=== PATIENT | female | born 1960 | race Caucasian/White ===

== ENCOUNTER 2021-01-21 10:58 | Emergency (ER) | payer MEDICARE, MEDICAID ==
[~2021-01-21] VITALS: Ht 162.6 cm; Wt 65.5 kg
[2021-01-21 11:45] VITALS: BP 127/41
[2021-01-21] MEDS ORDERED: aspirin 81mg tab.chew PO ONE (11:50)
== END 2021-01-21 12:05 | disposition left against medical advice (07) ==
LOC: ER 11:00
DX: R07.89 Other chest pain (principal); R14.1 Gas pain
CPT/HCPCS: 93005; 99283

== ENCOUNTER 2024-11-16 18:12 | Inpatient (IN) | payer MEDICARE, MEDICAID ==
[~2024-11-16] VITALS: Ht 162.6 cm; Wt 81.5 kg
[2024-11-16 19:03] LABS: BASOPHILS % (AUTO) 0.3 % (0-1); EOSINOPHILS % (AUTO) 0 % (0-6); HEMATOCRIT 36.7 % (35.0-45.0); HEMOGLOBIN 12.5 g/dl (12.0-16.0); LYMPHOCYTES # (AUTO) 0.8 X10'3 (1.1-4.8); LYMPHOCYTES % (AUTO) 16.4 % (21-51); MEAN CORPUSCULAR HEMOGLOBIN 32.3 PG (27.0-31.0); MEAN CORPUSCULAR HGB CONC 34.2 g/dL (33.0-36.5); MEAN CORPUSCULAR VOLUME 94.4 FL (78-98); MEAN PLATELET VOLUME 8.5 FL (7.4-10.4); MONOCYTES # (AUTO) 0.8 X10'3 (0-0.9); MONOCYTES % (AUTO) 15.5 % (2-12); NEUTROPHILS # (AUTO) 3.5 X10'3 (1.8-7.7); NEUTROPHILS % (AUTO) 67.8 % (42-75); PLATELET COUNT 157 X10'3 (140-440); RED BLOOD COUNT 3.89 X10'6 (4.20-5.60); RED CELL DISTRIBUTION WIDTH 15.1 % (11.5-14.5); WHITE BLOOD COUNT 5.1 X10'3 (4.5-11.0)
[2024-11-16 19:17] LABS: ANION GAP 7 (8-16); BLOOD UREA NITROGEN 35 MG/DL (7-18); BUN/CREATININE RATIO 36.8 (10.0-20.0); CALCIUM 8.4 MG/DL (8.5-10.1); CHLORIDE 102 MMOL/L (99-107); CREATININE 0.95 MG/DL (0.40-0.90); GLUCOSE 205 MG/DL (70-104); POTASSIUM 3.5 MMOL/L (3.5-5.1); SODIUM 139 MMOL/L (135-145); TOTAL CARBON DIOXIDE 30.1 MMOL/L (24-32); eCRCL 53 ML/MIN; eGFR 60 ML/MIN
[2024-11-16] MEDS ORDERED: HALO5TAB (19:40)
[2024-11-16] MEDS ORDERED: DOCU-391 (19:40)
[2024-11-16] MEDS ORDERED: DONE10TA44 (19:40)
[2024-11-16] MEDS ORDERED: DIVA500T9 (19:40)
[2024-11-16] MEDS ORDERED: CHOL20002 PO (19:40)
[2024-11-16] MEDS ORDERED: CLOZ50TA9 (19:40)
[2024-11-16] MEDS ORDERED: SERT-434 (19:40)
[2024-11-16] MEDS ORDERED: DONE-46 (19:40)
[2024-11-16] MEDS ORDERED: OXYB5TAB21 (19:40)
[2024-11-16] MEDS ORDERED: FURO20TA4 (19:40)
[2024-11-16] MEDS ORDERED: LEVO50TA8 (19:40)
[2024-11-16] MEDS ORDERED: GABA300C (19:40)
[2024-11-16] MEDS ORDERED: BENZ0.5T3 (19:40)
[2024-11-16] MEDS ORDERED: DICL100G59 (19:40)
[2024-11-16 19:42] LABS: TOTAL CELLS COUNTED 100
[2024-11-16 19:58] LABS: BILIRUBIN,URINE NEGATIVE (Neg); CLARITY,URINE CLEAR (Clear); COLOR,URINE YELLOW (Yellow); GLUCOSE, URINE NEGATIVE (Neg); KETONES,URINE NEGATIVE (Neg); LEUKOCYTE ESTERASE ,URINE NEGATIVE (Neg); NITRITES, URINE NEGATIVE (Neg); OCCULT BLOOD,URINE NEGATIVE (Neg); PROTEIN,URINE NEGATIVE (Neg); UROBILINOGEN,URINE 0.2 E.U/dL (0.2-1.0)
[2024-11-16] MEDS: aspirin 81mg tab.chew PO ONE (20:14)
[2024-11-16 20:21] LABS: UA COLLECTION TYPE CLN CATCH MIDSTREAM
[2024-11-16] MEDS: enoxaparin 60mg/0.6ml syringe SUBCUT ONE (20:55)
[2024-11-16 21:00] LABS: C-REACTIVE PROTEIN 3.49 MG/DL (0.0-0.5); PRO BRAIN NATRIURETIC PEPTIDE 681 PG/ML (0-125)
[2024-11-16 21:07] LABS: APTT 31 SECONDS (22-32); INR 1.1 INR; PROTHROMBIN TIME 11.1 SECONDS (9.0-12.0)
[2024-11-16] MEDS ORDERED: potassium Cl 20 mEq SR tablet PO PRN ×2 (21:45)
[2024-11-16] MEDS ORDERED: HYDROcodone/acetaminophen 5mg/325mg tablet PO PRN (21:45)
[2024-11-16] MEDS ORDERED: morphine 2 MG/ML inj. syringe IV PRN (21:45)
[2024-11-16] MEDS ORDERED: PERFLUTREN PROTEIN-A MICROSPHR (Optison) 0.22 MG/ML 3ML VIAL IV PRN (21:45)
[2024-11-16] MEDS ORDERED: ondansetron/PF 4mg/2ml inj IV PRN (21:45)
[2024-11-16] MEDS ORDERED: mag hydrox/Alum hydrox/simeth 30ml oral suspension PO PRN (21:45)
[2024-11-16] MEDS ORDERED: magnesium sulf-water 2g/50mL 50 ML IV PRN (21:45)
[2024-11-16] MEDS ORDERED: magnesium Cl slow-release 64mg tablet PO PRN (21:45)
[2024-11-16] MEDS ORDERED: magnesium sulf-water 4G/100mL 100 ML IV PRN (21:45)
[2024-11-16] MEDS ORDERED: potassium Cl 40MEQ/1/2NS 520ml 520 ML IV PRN (21:45)
[2024-11-16] MEDS: enoxaparin 100mg/ml syringe SUBCUT ONE (22:00)
[2024-11-17] VITALS (8 sets, daily range): BP systolic 103–117; BP diastolic 45–86; PULSE 64–76; RESP 16–18; TEMP 97.6–101.8; O2SAT 64–96
[2024-11-17] MEDS: normal saline 1000ml 1,000 ML IV ONE (04:30)
[2024-11-17 07:14] LABS: BASOPHILS % (AUTO) 0.6 % (0-1); EOSINOPHILS % (AUTO) 0 % (0-6); HEMATOCRIT 35.5 % (35.0-45.0); LYMPHOCYTES # (AUTO) 1.2 X10'3 (1.1-4.8); LYMPHOCYTES % (AUTO) 26.6 % (21-51); MEAN CORPUSCULAR HEMOGLOBIN 31.8 PG (27.0-31.0); MEAN CORPUSCULAR HGB CONC 33.7 g/dL (33.0-36.5); MEAN CORPUSCULAR VOLUME 94.2 FL (78-98); MEAN PLATELET VOLUME 8.8 FL (7.4-10.4); MONOCYTES # (AUTO) 0.6 X10'3 (0-0.9); MONOCYTES % (AUTO) 12.9 % (2-12); NEUTROPHILS # (AUTO) 2.8 X10'3 (1.8-7.7); NEUTROPHILS % (AUTO) 59.9 % (42-75); PLATELET COUNT 146 X10'3 (140-440); RED BLOOD COUNT 3.77 X10'6 (4.20-5.60); RED CELL DISTRIBUTION WIDTH 14.8 % (11.5-14.5); WHITE BLOOD COUNT 4.7 X10'3 (4.5-11.0)
[2024-11-17 07:22] LABS: ALANINE AMINOTRANSFERASE 116 U/L (12-78); ALBUMIN 2.5 G/DL (3.4-5.0); ALBUMIN/GLOBULIN RATIO 0.7 (1.1-1.5); ALKALINE PHOSPHATASE 50 IU/L (46-116); ANION GAP 3 (8-16); ASPARTATE AMINO TRANSFERASE 414 U/L (10-37); BILIRUBIN,TOTAL 0.3 MG/DL (0.1-1.0); BLOOD UREA NITROGEN 26 MG/DL (7-18); BUN/CREATININE RATIO 44.1 (10.0-20.0); CALCIUM 7.9 MG/DL (8.5-10.1); CHLORIDE 104 MMOL/L (99-107); CHOL/HDL RATIO 1.7 (0.00-4.99); CHOLESTEROL 103 MG/DL (0-200); CREATININE 0.59 MG/DL (0.40-0.90); GLUCOSE 108 MG/DL (70-104); HDL CHOLESTEROL 59 MG/DL (35-60); MAGNESIUM 1.9 MG/DL (1.5-2.4); POTASSIUM 3.7 MMOL/L (3.5-5.1); SODIUM 139 MMOL/L (135-145); THYROID STIMULATING HORMONE 3.07 ulU/ml (0.34-4.50); TOTAL PROTEIN 5.9 G/DL (6.4-8.2); TRIGLYCERIDES 121 MG/DL (20-135); eCRCL 85 ML/MIN; eGFR > 90 ML/MIN
[2024-11-17 07:46] LABS: LDL CHOLESTEROL 36 MG/DL (50-100)
[2024-11-17] MEDS: K and/or MAG REPLACEMENT MC SCH (08:00)
[2024-11-17] MEDS: docusate sod 100mg capsule PO SCH (08:19)
[2024-11-17] MEDS: oseltamivir phos 75mg capsule PO SCH (08:19)
[2024-11-17] MEDS: acetaminophen 325mg tablet PO PRN (08:19)
[2024-11-17] MEDS: heparin, porcine 5000 units/ml vial SQ SCH (08:20)
[2024-11-17] MEDS ORDERED: HALO5TAB PO (09:12)
[2024-11-17] MEDS: FLU VACC TS2024-25(6MOS UP)/PF 45 MCG/0.5 ML SYRINGE IMVAC ONE (10:42)
[2024-11-17] MEDS: ringers solution, lacted 1,000 ML IV ONE (12:28)
[2024-11-17 12:37] LABS: D-DIMER 0.77 MG/L FEU (0-0.50)
[2024-11-17 12:51] LABS: PHOSPHORUS 2.5 MG/DL (2.3-4.5)
[2024-11-17 13:01] LABS: ABG HCO3 28.2 mmol/L (21.0-28.0); ABG OXYGEN SATURATION 89.7 % (94.0-98.0); ABG PCO2 (T) 43.4 mmHg (32.0-45.0); ABG PH (T) 7.436 (7.350-7.450); ABG PO2 (T) 63.2 mmHg (83.0-108.0); ALLEN'S TEST POSITIVE; FCOHb 0.5 % (0.5-1.5); FHHb 10.2 % (0.0-5.0); FLOW 3 L/min; FMetHb 0.3 % (0.0-1.5); MODE NASAL CANNULA; PATIENT TEMPERATURE 38.6
[2024-11-17] MEDS: azithromycin/NS 500mg/250ml 250 ML IV ONE (13:57)
[2024-11-17] MEDS: magnesium hydroxide 30ml (MOM) UD suspension PO PRN (14:06)
[2024-11-17] MEDS: CefTRIAXone/D5W-Rocephin 1gm 50 ML IV SCH (16:17)
[2024-11-17] MEDS ORDERED: vancomycin/NS 1 GM ADD-VANTAGE 250 ML IV SCH (17:00)
[2024-11-17] MEDS: normal saline 1000ml 1,000 ML IV SCH (17:02)
[2024-11-17] MEDS ORDERED: FURO20TA4 PO (17:22)
[2024-11-17] MEDS ORDERED: DIVA500T9 PO (17:22)
[2024-11-17] MEDS ORDERED: GABA300C PO (17:22)
[2024-11-17] MEDS ORDERED: CLOZ50TA9 PO (17:22)
[2024-11-17] MEDS ORDERED: SERT-434 PO (17:22)
[2024-11-17] MEDS ORDERED: OXYB5TAB21 PO (17:22)
[2024-11-17] MEDS: VANCOMYCIN 1.75GM/WATER FOR INJ (PEG) 350 ML IVPB IV ONE (17:50)
[2024-11-17] MEDS: divalproex sod 250mg ER (24-hour) tablet PO SCH (20:54)
[2024-11-17] MEDS: haloperidol 5mg tablet PO SCH (20:55)
[2024-11-18] VITALS (7 sets, daily range): BP systolic 109–125; BP diastolic 41–57; PULSE 65–90; RESP 12–24; TEMP 98–100.1; O2SAT 92–98
[2024-11-18] MEDS: VANCOMYCIN/WATER FOR INJ (PEG) 1.25GM/250 ML IVPB IV SCH (05:21)
[2024-11-18 06:18] LABS: BASOPHILS % (AUTO) 0.8 % (0-1); EOSINOPHILS % (AUTO) 0.1 % (0-6); HEMATOCRIT 33.6 % (35.0-45.0); HEMOGLOBIN 11.4 g/dl (12.0-16.0); LYMPHOCYTES # (AUTO) 1.5 X10'3 (1.1-4.8); LYMPHOCYTES % (AUTO) 37.1 % (21-51); MEAN CORPUSCULAR HEMOGLOBIN 31.8 PG (27.0-31.0); MEAN CORPUSCULAR HGB CONC 33.8 g/dL (33.0-36.5); MEAN PLATELET VOLUME 8.5 FL (7.4-10.4); MONOCYTES # (AUTO) 0.4 X10'3 (0-0.9); MONOCYTES % (AUTO) 9.8 % (2-12); NEUTROPHILS % (AUTO) 52.2 % (42-75); PLATELET COUNT 131 X10'3 (140-440); RED BLOOD COUNT 3.57 X10'6 (4.20-5.60); RED CELL DISTRIBUTION WIDTH 14.8 % (11.5-14.5); WHITE BLOOD COUNT 3.9 X10'3 (4.5-11.0)
[2024-11-18 06:37] LABS: ALANINE AMINOTRANSFERASE 104 U/L (12-78); ALBUMIN 2.1 G/DL (3.4-5.0); ALBUMIN/GLOBULIN RATIO 0.7 (1.1-1.5); ALKALINE PHOSPHATASE 45 IU/L (46-116); ANION GAP 3 (8-16); ASPARTATE AMINO TRANSFERASE 370 U/L (10-37); BILIRUBIN,TOTAL 0.2 MG/DL (0.1-1.0); BLOOD UREA NITROGEN 13 MG/DL (7-18); BUN/CREATININE RATIO 26.5 (10.0-20.0); CALCIUM 7.5 MG/DL (8.5-10.1); CHLORIDE 104 MMOL/L (99-107); CREATININE 0.49 MG/DL (0.40-0.90); GLUCOSE 103 MG/DL (70-104); MAGNESIUM 1.8 MG/DL (1.5-2.4); POTASSIUM 4.1 MMOL/L (3.5-5.1); SODIUM 138 MMOL/L (135-145); TOTAL CARBON DIOXIDE 31.4 MMOL/L (24-32); TOTAL PROTEIN 5.3 G/DL (6.4-8.2); eCRCL 103 ML/MIN; eGFR > 90 ML/MIN
[2024-11-18] MEDS: gabapentin 300mg capsule PO SCH (09:52)
[2024-11-18] MEDS: oxybutynin 5mg tablet PO SCH (09:52)
[2024-11-18] MEDS: sertraline 50mg tablet PO SCH (09:52)
[2024-11-18] MEDS: aspirin 81mg tab.chew PO SCH (09:52)
[2024-11-18] MEDS: clozapine 25mg tablet PO SCH (09:55)
[2024-11-19 02:00] VITALS: BP 103/42; PULSE 71; RESP 15; TEMP 98; O2SAT 95
[2024-11-19] MEDS: VANCOMYCIN LEVEL IV ONE (05:02)
[2024-11-19 05:12] LABS: BASOPHILS % (AUTO) 0.3 % (0-1); EOSINOPHILS % (AUTO) 0 % (0-6); HEMATOCRIT 33.1 % (35.0-45.0); HEMOGLOBIN 11.2 g/dl (12.0-16.0); LYMPHOCYTES # (AUTO) 1.7 X10'3 (1.1-4.8); LYMPHOCYTES % (AUTO) 21.9 % (21-51); MEAN CORPUSCULAR HEMOGLOBIN 31.8 PG (27.0-31.0); MEAN CORPUSCULAR HGB CONC 33.9 g/dL (33.0-36.5); MEAN CORPUSCULAR VOLUME 93.7 FL (78-98); MEAN PLATELET VOLUME 8.7 FL (7.4-10.4); MONOCYTES # (AUTO) 0.7 X10'3 (0-0.9); MONOCYTES % (AUTO) 9.8 % (2-12); NEUTROPHILS # (AUTO) 5.2 X10'3 (1.8-7.7); PLATELET COUNT 139 X10'3 (140-440); RED BLOOD COUNT 3.53 X10'6 (4.20-5.60); RED CELL DISTRIBUTION WIDTH 14.7 % (11.5-14.5); WHITE BLOOD COUNT 7.6 X10'3 (4.5-11.0)
[2024-11-19 05:32] LABS: ALANINE AMINOTRANSFERASE 91 U/L (12-78); ALBUMIN 1.9 G/DL (3.4-5.0); ALBUMIN/GLOBULIN RATIO 0.6 (1.1-1.5); ALKALINE PHOSPHATASE 42 IU/L (46-116); ANION GAP 2 (8-16); ASPARTATE AMINO TRANSFERASE 250 U/L (10-37); BILIRUBIN,TOTAL 0.2 MG/DL (0.1-1.0); BLOOD UREA NITROGEN 14 MG/DL (7-18); BUN/CREATININE RATIO 32.6 (10.0-20.0); CALCIUM 7.8 MG/DL (8.5-10.1); CHLORIDE 103 MMOL/L (99-107); CREATININE 0.43 MG/DL (0.40-0.90); GLUCOSE 119 MG/DL (70-104); MAGNESIUM 1.8 MG/DL (1.5-2.4); POTASSIUM 4.1 MMOL/L (3.5-5.1); SODIUM 138 MMOL/L (135-145); TOTAL CARBON DIOXIDE 32.8 MMOL/L (24-32); TOTAL PROTEIN 5.2 G/DL (6.4-8.2); VANCOMYCIN,TROUGH 12.9 ug/mL (10.0-20.0); eCRCL 117 ML/MIN; eGFR > 90 ML/MIN
[2024-11-19 06:00] VITALS: BP 105/45; PULSE 70; RESP 12; TEMP 97.3; O2SAT 96
[2024-11-19 08:00] VITALS: RESP 22; O2SAT 94
[2024-11-19] MEDS: furosemide 40mg/4ml inj IV ONE (09:45)
[2024-11-19 11:00] VITALS: BP 94/35; PULSE 75; RESP 20; TEMP 98.6; O2SAT 97
[2024-11-19] MEDS: albumin (Human) 5% 250ml 250 ML IV ONE (13:55)
[2024-11-19 14:55] LABS: PRO BRAIN NATRIURETIC PEPTIDE 416 PG/ML (0-125)
[2024-11-19 15:31] LABS: OSMOLALITY 284 MOSM/K (280-300)
[2024-11-19] MEDS: VANCOMYCIN/WATER FOR INJ (PEG) 1.5GM/300 ML IVPB IV SCH (17:00)
[2024-11-19 17:04] LABS: BILIRUBIN,URINE NEGATIVE (Neg); CLARITY,URINE CLEAR (Clear); COLOR,URINE YELLOW (Yellow); GLUCOSE, URINE 100 mg/dl (Neg); KETONES,URINE NEGATIVE (Neg); LEUKOCYTE ESTERASE ,URINE NEGATIVE (Neg); NITRITES, URINE NEGATIVE (Neg); OCCULT BLOOD,URINE NEGATIVE (Neg); PH,URINE 5.5 (4.8-8.0); PROTEIN,URINE NEGATIVE (Neg); UROBILINOGEN,URINE 0.2 E.U/dL (0.2-1.0)
[2024-11-19 17:06] LABS: UA COLLECTION TYPE NON-SPECIFIED
[2024-11-19 18:00] VITALS: BP 124/73; PULSE 92; RESP 22; TEMP 97.8; O2SAT 93
[2024-11-19 22:00] VITALS: BP 124/38; PULSE 78; RESP 27; TEMP 98.7; O2SAT 96
[2024-11-20] VITALS (8 sets, daily range): BP systolic 98–124; BP diastolic 39–54; PULSE 66–95; RESP 16–23; TEMP 97.8–99.2; O2SAT 91–96
[2024-11-20 06:10] LABS: BASOPHILS % (AUTO) 0.3 % (0-1); EOSINOPHILS % (AUTO) 0.2 % (0-6); HEMATOCRIT 32.4 % (35.0-45.0); LYMPHOCYTES # (AUTO) 1.5 X10'3 (1.1-4.8); LYMPHOCYTES % (AUTO) 20.2 % (21-51); MEAN CORPUSCULAR HEMOGLOBIN 31.4 PG (27.0-31.0); MEAN CORPUSCULAR HGB CONC 33.9 g/dL (33.0-36.5); MEAN CORPUSCULAR VOLUME 92.8 FL (78-98); MEAN PLATELET VOLUME 9.3 FL (7.4-10.4); MONOCYTES # (AUTO) 0.7 X10'3 (0-0.9); MONOCYTES % (AUTO) 10.2 % (2-12); NEUTROPHILS # (AUTO) 5.1 X10'3 (1.8-7.7); NEUTROPHILS % (AUTO) 69.1 % (42-75); PLATELET COUNT 143 X10'3 (140-440); RED BLOOD COUNT 3.49 X10'6 (4.20-5.60); RED CELL DISTRIBUTION WIDTH 14.9 % (11.5-14.5); WHITE BLOOD COUNT 7.4 X10'3 (4.5-11.0)
[2024-11-20 08:03] LABS: ALANINE AMINOTRANSFERASE 83 U/L (12-78); ALBUMIN 1.9 G/DL (3.4-5.0); ALBUMIN/GLOBULIN RATIO 0.5 (1.1-1.5); ALKALINE PHOSPHATASE 48 IU/L (46-116); ANION GAP 6 (8-16); ASPARTATE AMINO TRANSFERASE 182 U/L (10-37); BILIRUBIN,TOTAL 0.3 MG/DL (0.1-1.0); BLOOD UREA NITROGEN 13 MG/DL (7-18); BUN/CREATININE RATIO 32.5 (10.0-20.0); CALCIUM 7.6 MG/DL (8.5-10.1); CHLORIDE 103 MMOL/L (99-107); GLUCOSE 125 MG/DL (70-104); MAGNESIUM 1.8 MG/DL (1.5-2.4); SODIUM 137 MMOL/L (135-145); TOTAL CARBON DIOXIDE 28.3 MMOL/L (24-32); TOTAL PROTEIN 5.5 G/DL (6.4-8.2); eCRCL 126 ML/MIN; eGFR > 90 ML/MIN
[2024-11-21] VITALS (8 sets, daily range): BP systolic 112–151; BP diastolic 42–66; PULSE 65–78; RESP 16–22; TEMP 97.5–98.7; O2SAT 94–97
[2024-11-21 05:06] LABS: BASOPHILS % (AUTO) 0.3 % (0-1); EOSINOPHILS % (AUTO) 0.8 % (0-6); HEMATOCRIT 32.8 % (35.0-45.0); LYMPHOCYTES % (AUTO) 31.5 % (21-51); MEAN CORPUSCULAR HEMOGLOBIN 31.5 PG (27.0-31.0); MEAN CORPUSCULAR HGB CONC 33.5 g/dL (33.0-36.5); MEAN CORPUSCULAR VOLUME 94.1 FL (78-98); MEAN PLATELET VOLUME 8.9 FL (7.4-10.4); MONOCYTES # (AUTO) 0.8 X10'3 (0-0.9); MONOCYTES % (AUTO) 12.3 % (2-12); NEUTROPHILS # (AUTO) 3.5 X10'3 (1.8-7.7); NEUTROPHILS % (AUTO) 55.1 % (42-75); PLATELET COUNT 160 X10'3 (140-440); RED BLOOD COUNT 3.48 X10'6 (4.20-5.60); RED CELL DISTRIBUTION WIDTH 15.2 % (11.5-14.5); WHITE BLOOD COUNT 6.4 X10'3 (4.5-11.0)
[2024-11-21] MEDS: MESSAGE TO NURSING IV ONE (05:18)
[2024-11-21 05:19] LABS: ALANINE AMINOTRANSFERASE 94 U/L (12-78); ALBUMIN 1.8 G/DL (3.4-5.0); ALBUMIN/GLOBULIN RATIO 0.5 (1.1-1.5); ALKALINE PHOSPHATASE 52 IU/L (46-116); ANION GAP 2 (8-16); ASPARTATE AMINO TRANSFERASE 159 U/L (10-37); BILIRUBIN,TOTAL 0.3 MG/DL (0.1-1.0); BLOOD UREA NITROGEN 14 MG/DL (7-18); BUN/CREATININE RATIO 36.8 (10.0-20.0); CALCIUM 7.9 MG/DL (8.5-10.1); CHLORIDE 106 MMOL/L (99-107); CREATININE 0.38 MG/DL (0.40-0.90); GLUCOSE 111 MG/DL (70-104); SODIUM 138 MMOL/L (135-145); TOTAL CARBON DIOXIDE 30.2 MMOL/L (24-32); TOTAL PROTEIN 5.5 G/DL (6.4-8.2); VANCOMYCIN,TROUGH 15.9 ug/mL (10.0-20.0); eCRCL 133 ML/MIN; eGFR > 90 ML/MIN
[2024-11-21] MEDS: oseltamivir phos 75mg capsule PO SCH (20:00)
[2024-11-22 02:00] VITALS: BP 138/60; PULSE 64; RESP 19; TEMP 97.5; O2SAT 96
[2024-11-22 06:00] VITALS: BP 154/61; PULSE 66; RESP 22; TEMP 98.4; O2SAT 95
[2024-11-22 07:14] LABS: BASOPHILS % (AUTO) 0.5 % (0-1); EOSINOPHILS # (AUTO) 0.1 X10'3 (0-0.9); EOSINOPHILS % (AUTO) 1.4 % (0-6); HEMATOCRIT 31.5 % (35.0-45.0); HEMOGLOBIN 10.6 g/dl (12.0-16.0); LYMPHOCYTES # (AUTO) 2.4 X10'3 (1.1-4.8); LYMPHOCYTES % (AUTO) 36.4 % (21-51); MEAN CORPUSCULAR HEMOGLOBIN 31.4 PG (27.0-31.0); MEAN CORPUSCULAR HGB CONC 33.7 g/dL (33.0-36.5); MEAN CORPUSCULAR VOLUME 93.3 FL (78-98); MEAN PLATELET VOLUME 9.5 FL (7.4-10.4); MONOCYTES % (AUTO) 15.3 % (2-12); NEUTROPHILS % (AUTO) 46.4 % (42-75); PLATELET COUNT 216 X10'3 (140-440); RED BLOOD COUNT 3.38 X10'6 (4.20-5.60); RED CELL DISTRIBUTION WIDTH 14.8 % (11.5-14.5); WHITE BLOOD COUNT 6.5 X10'3 (4.5-11.0)
[2024-11-22 07:55] LABS: ALANINE AMINOTRANSFERASE 106 U/L (12-78); ALBUMIN 1.7 G/DL (3.4-5.0); ALBUMIN/GLOBULIN RATIO 0.4 (1.1-1.5); ALKALINE PHOSPHATASE 51 IU/L (46-116); ANION GAP 7 (8-16); ASPARTATE AMINO TRANSFERASE 140 U/L (10-37); BILIRUBIN,TOTAL 0.4 MG/DL (0.1-1.0); BLOOD UREA NITROGEN 12 MG/DL (7-18); CALCIUM 8.2 MG/DL (8.5-10.1); CHLORIDE 104 MMOL/L (99-107); GLUCOSE 106 MG/DL (70-104); POTASSIUM 4.1 MMOL/L (3.5-5.1); SODIUM 139 MMOL/L (135-145); TOTAL CARBON DIOXIDE 28.5 MMOL/L (24-32); TOTAL PROTEIN 5.6 G/DL (6.4-8.2); eCRCL 101 ML/MIN; eGFR > 90 ML/MIN
[2024-11-22] MEDS: levoFLOXACIN-Levaquin 750MG/D5 150 ML IV ONE (09:15)
[2024-11-22] MEDS ORDERED: iohexol 350MG/ML 100ml bottle IV ONE (10:58)
[2024-11-22 11:00] VITALS: BP 132/51; PULSE 78; RESP 16; TEMP 96.7; O2SAT 94
[2024-11-22 18:00] VITALS: BP 146/56; PULSE 97; RESP 18; TEMP 97.6; O2SAT 94
[2024-11-22 22:00] VITALS: BP 130/50; PULSE 59; RESP 17; TEMP 97.5; O2SAT 95
[2024-11-23] VITALS (7 sets, daily range): BP systolic 97–148; BP diastolic 45–71; PULSE 63–79; RESP 13–20; TEMP 96–98.1; O2SAT 92–97
[2024-11-23] MEDS: levoFLOXACIN-Levaquin 750MG/D5 150 ML IV SCH (09:24)
[2024-11-23 10:04] LABS: BASOPHILS % (AUTO) 0.6 % (0-1); EOSINOPHILS # (AUTO) 0.2 X10'3 (0-0.9); EOSINOPHILS % (AUTO) 2.2 % (0-6); HEMATOCRIT 31.8 % (35.0-45.0); HEMOGLOBIN 10.6 g/dl (12.0-16.0); LYMPHOCYTES # (AUTO) 2.3 X10'3 (1.1-4.8); LYMPHOCYTES % (AUTO) 32.8 % (21-51); MEAN CORPUSCULAR HEMOGLOBIN 31.4 PG (27.0-31.0); MEAN CORPUSCULAR HGB CONC 33.5 g/dL (33.0-36.5); MEAN CORPUSCULAR VOLUME 93.7 FL (78-98); MEAN PLATELET VOLUME 9.3 FL (7.4-10.4); MONOCYTES # (AUTO) 1.1 X10'3 (0-0.9); MONOCYTES % (AUTO) 15.9 % (2-12); NEUTROPHILS # (AUTO) 3.4 X10'3 (1.8-7.7); NEUTROPHILS % (AUTO) 48.5 % (42-75); PLATELET COUNT 301 X10'3 (140-440); RED BLOOD COUNT 3.39 X10'6 (4.20-5.60); RED CELL DISTRIBUTION WIDTH 15.2 % (11.5-14.5)
[2024-11-23 10:21] LABS: ALANINE AMINOTRANSFERASE 90 U/L (12-78); ALBUMIN 1.8 G/DL (3.4-5.0); ALBUMIN/GLOBULIN RATIO 0.5 (1.1-1.5); ALKALINE PHOSPHATASE 53 IU/L (46-116); ANION GAP 1 (8-16); ASPARTATE AMINO TRANSFERASE 87 U/L (10-37); BILIRUBIN,TOTAL 0.4 MG/DL (0.1-1.0); BLOOD UREA NITROGEN 16 MG/DL (7-18); BUN/CREATININE RATIO 53.3 (10.0-20.0); CALCIUM 8.6 MG/DL (8.5-10.1); CHLORIDE 107 MMOL/L (99-107); GLUCOSE 105 MG/DL (70-104); POTASSIUM 4.5 MMOL/L (3.5-5.1); SODIUM 142 MMOL/L (135-145); TOTAL CARBON DIOXIDE 33.8 MMOL/L (24-32); TOTAL PROTEIN 5.5 G/DL (6.4-8.2); eCRCL 168 ML/MIN; eGFR > 90 ML/MIN
[2024-11-24 07:38] LABS: BASOPHILS % (AUTO) 0.7 % (0-1); EOSINOPHILS # (AUTO) 0.2 X10'3 (0-0.9); EOSINOPHILS % (AUTO) 2.9 % (0-6); HEMATOCRIT 34.3 % (35.0-45.0); HEMOGLOBIN 11.4 g/dl (12.0-16.0); LYMPHOCYTES % (AUTO) 29.5 % (21-51); MEAN CORPUSCULAR HEMOGLOBIN 31.5 PG (27.0-31.0); MEAN CORPUSCULAR HGB CONC 33.3 g/dL (33.0-36.5); MEAN CORPUSCULAR VOLUME 94.6 FL (78-98); MEAN PLATELET VOLUME 8.8 FL (7.4-10.4); MONOCYTES # (AUTO) 1.1 X10'3 (0-0.9); MONOCYTES % (AUTO) 15.7 % (2-12); NEUTROPHILS # (AUTO) 3.5 X10'3 (1.8-7.7); NEUTROPHILS % (AUTO) 51.2 % (42-75); PLATELET COUNT 362 X10'3 (140-440); RED BLOOD COUNT 3.63 X10'6 (4.20-5.60); WHITE BLOOD COUNT 6.9 X10'3 (4.5-11.0)
[2024-11-24 08:00] VITALS: BP 136/71; PULSE 73; RESP 16; TEMP 98.6; O2SAT 98
[2024-11-24 08:26] LABS: TOTAL CARBON DIOXIDE 31.4 MMOL/L (24-32)
[2024-11-24 08:33] LABS: ALANINE AMINOTRANSFERASE 93 U/L (12-78); ALBUMIN 1.8 G/DL (3.4-5.0); ALBUMIN/GLOBULIN RATIO 0.5 (1.1-1.5); ALKALINE PHOSPHATASE 52 IU/L (46-116); ANION GAP 4 (8-16); ASPARTATE AMINO TRANSFERASE 82 U/L (10-37); BILIRUBIN,TOTAL 0.3 MG/DL (0.1-1.0); BLOOD UREA NITROGEN 15 MG/DL (7-18); BUN/CREATININE RATIO 45.5 (10.0-20.0); CALCIUM 8.8 MG/DL (8.5-10.1); CHLORIDE 106 MMOL/L (99-107); CREATININE 0.33 MG/DL (0.40-0.90); GLUCOSE 114 MG/DL (70-104); POTASSIUM 4.6 MMOL/L (3.5-5.1); SODIUM 141 MMOL/L (135-145); TOTAL PROTEIN 5.6 G/DL (6.4-8.2); eCRCL 153 ML/MIN; eGFR > 90 ML/MIN
[2024-11-24 13:44] VITALS: PULSE 75; TEMP 98.6
[2024-11-24 15:00] VITALS: BP 114/64; PULSE 91; RESP 18; TEMP 97.9; O2SAT 96
[2024-11-24 18:00] VITALS: BP 103/46; PULSE 87; RESP 15; TEMP 97.3; O2SAT 98
[2024-11-24 20:00] VITALS: RESP 16
[2024-11-24 22:00] VITALS: BP 110/54; PULSE 55; RESP 19; TEMP 97.4; O2SAT 100
[2024-11-25 02:00] VITALS: BP 99/60; PULSE 87; RESP 20; TEMP 97.8; O2SAT 94
[2024-11-25 06:00] VITALS: BP 126/46; PULSE 73; RESP 18; TEMP 97.8; O2SAT 91
[2024-11-25 06:20] LABS: BASOPHILS % (AUTO) 0.4 % (0-1); EOSINOPHILS # (AUTO) 0.2 X10'3 (0-0.9); EOSINOPHILS % (AUTO) 2.4 % (0-6); HEMATOCRIT 31.8 % (35.0-45.0); HEMOGLOBIN 10.9 g/dl (12.0-16.0); LYMPHOCYTES # (AUTO) 2.1 X10'3 (1.1-4.8); LYMPHOCYTES % (AUTO) 26.6 % (21-51); MEAN CORPUSCULAR HEMOGLOBIN 32.3 PG (27.0-31.0); MEAN CORPUSCULAR HGB CONC 34.3 g/dL (33.0-36.5); MEAN CORPUSCULAR VOLUME 94.2 FL (78-98); MEAN PLATELET VOLUME 8.7 FL (7.4-10.4); MONOCYTES # (AUTO) 1.2 X10'3 (0-0.9); MONOCYTES % (AUTO) 15.5 % (2-12); NEUTROPHILS # (AUTO) 4.3 X10'3 (1.8-7.7); NEUTROPHILS % (AUTO) 55.1 % (42-75); PLATELET COUNT 417 X10'3 (140-440); RED BLOOD COUNT 3.38 X10'6 (4.20-5.60); RED CELL DISTRIBUTION WIDTH 14.9 % (11.5-14.5); WHITE BLOOD COUNT 7.8 X10'3 (4.5-11.0)
[2024-11-25 06:30] LABS: ALANINE AMINOTRANSFERASE 92 U/L (12-78); ALBUMIN/GLOBULIN RATIO 0.5 (1.1-1.5); ALKALINE PHOSPHATASE 55 IU/L (46-116); ANION GAP -1 (8-16); ASPARTATE AMINO TRANSFERASE 67 U/L (10-37); BILIRUBIN,TOTAL 0.4 MG/DL (0.1-1.0); BLOOD UREA NITROGEN 17 MG/DL (7-18); CALCIUM 8.8 MG/DL (8.5-10.1); CHLORIDE 106 MMOL/L (99-107); CREATININE 0.46 MG/DL (0.40-0.90); GLUCOSE 120 MG/DL (70-104); POTASSIUM 4.7 MMOL/L (3.5-5.1); SODIUM 140 MMOL/L (135-145); TOTAL CARBON DIOXIDE 35.1 MMOL/L (24-32); TOTAL PROTEIN 5.8 G/DL (6.4-8.2); eCRCL 110 ML/MIN; eGFR > 90 ML/MIN
[2024-11-25] MEDS ORDERED: LEVO750T68 PO (08:03)
[2024-11-25] MEDS ORDERED: ASPI81TA53 PO (08:03)
[2024-11-25 10:00] VITALS: BP 115/44; PULSE 69; RESP 18; TEMP 97.8; O2SAT 100
[2024-11-25] MEDS: levoFLOXACIN 750MG TABLET PO SCH (13:12)
== END 2024-11-25 13:42 | DRG 871 ==
LOC: ER 18:12 → ED HOLD 20:55 → PCU 3S 11-17 01:55
PROVIDERS: ADMIT Internal Medicine Critical Care Medicine; ATTEND Family Medicine
PROC: B32S1ZZ Computerized Tomography (CT Scan) of Right Pulmonary Artery using Low Osmolar Contrast (ICD-10-PCS; principal; 2024-11-22)
PROC: B3201ZZ Computerized Tomography (CT Scan) of Thoracic Aorta using Low Osmolar Contrast (ICD-10-PCS; 2024-11-22)
PROC: B32T1ZZ Computerized Tomography (CT Scan) of Left Pulmonary Artery using Low Osmolar Contrast (ICD-10-PCS; 2024-11-22)
DX: A41.2 Sepsis due to unspecified staphylococcus (principal); I21.A1 Myocardial infarction type 2; N17.0 Acute kidney failure with tubular necrosis; J10.01 Influenza due to other identified influenza virus with the same other identified influenza virus pneumonia; J96.01 Acute respiratory failure with hypoxia; E87.20 Acidosis, unspecified; Z20.822 Contact with and (suspected) exposure to COVID-19; I48.91 Unspecified atrial fibrillation; F20.9 Schizophrenia, unspecified; Z79.899 Other long term (current) drug therapy
CPT/HCPCS: 36415; 36600; 71045; 71275; 80048; 80053; 80061; 80164; 80202; 81003; 82803; 83036; 83605; 83735; 83880; 83930; 84100; 84145; 84443; 84484; 85007; 85018; 85025; 85379; 85610; 85730; 86140; 87040; 87077; 87081; 87186; 87502; 87503; 87811; 92508; 92616; 93005; 93306; 93971; 94760; 97116; 97161; 97530; 99285; A4371; A4615; A6213; A6449; A6590; G0378; J0456; J0696; J1644; J1650; J1956; J3372; J7030; J7120; P9045; Q9967